=== PATIENT | female | born 1995 | race American Indian/Alaskan Native ===

== ENCOUNTER 2019-07-20 17:53 | Emergency (ER) | payer SELFPAY ==
[2019-07-20 17:59] VITALS: BP 131/46
--- NOTE | 2019-07-20 18:04 | Event Note ---
ED Screening Note Date of service: 07/20/19 Time: 18:01 ED Screening Note: This is a 23 y.o. F. that presents to the ER with upper back pain x 1 week. Patient states pain initially in lower back and progressed to between trapezium muscles. Denies recent injury, hematuria, urinary freq, urgency, and dysuria. LMP 07/06/19 This initial assessment/diagnostic orders/clinical plan/treatment(s) is/are subject to change based on patients health status, clinical progression and re- assessment by fellow clinical providers in the ED. Further treatment and workup at subsequent clinical providers discretion. Patient/guardian urged not to elope from the ED as their condition may be serious if not clinically assessed and managed. Initial orders include: XR thoracic spine
--- NOTE | 2019-07-20 18:42 | XRay Report ---
THORACIC SPINE 2 VIEWS INDICATION / CLINICAL INFORMATION: back pain. COMPARISON: None available. FINDINGS: VERTEBRAE: No acute fracture. No significant malalignment. DISC SPACES / FACET JOINTS:No significant abnormality. PARASPINAL SOFT TISSUES:No significant abnormality. ADDITIONAL FINDINGS: None. Signer Name: Ayesha Valdivia MD Signed: 07/20/2019 6:38 PM Workstation Name: [email or web address]
--- NOTE | 2019-07-20 19:02 | Emergency Department Report ---
HPI - General Chief Complaint: Back Pain/Injury Time Seen by Provider: 07/20/19 18:00 - HPI HPI: 23-year-old [place] female presents to the emergency department with complaint of some pain to the upper back, between the shoulder blades, that started this morning. She also feels that the pain radiates around to the middle of her chest. She denies any cough, shortness of breath, fever. She denies any recent trauma or injury or known inciting factor. She took one dose of ibuprofen earlier today without much relief. She has a past medical history of hypertension. No recent travel or sick contacts at home. ED Past Medical Hx - Past Medical History Previous Medical History?: Yes Hx Hypertension: Yes Additional medical history: prediabetes - Surgical History Past Surgical History?: Yes Hx Cholecystectomy: Yes Additional Surgical History: c-sect - Social History Smoking Status: Never Smoker Substance Use Type: None - Medications Home Medications: Home Medications Medication Instructions Recorded Confirmed Last Taken Type Amoxicillin [Trimox CAP] 500 mg PO Q8H #30 capsule 10/03/13 Unknown Rx predniSONE [Deltasone] 50 mg PO QDAY #4 tab 10/03/13 Unknown Rx Naproxen [Naprosyn] 500 mg PO BID #14 tablet 06/15/14 Unknown Rx Sulfamethoxazole/Trimethoprim 1 each PO BID #20 tablet 06/15/14 Unknown Rx [Bactrim Ds] methOCARBAMOL [Robaxin] 500 mg PO BID #14 tab 06/15/14 Unknown Rx Famotidine [Pepcid] 20 mg PO BID #40 tablet 12/16/15 Unknown Rx Promethazine [Phenergan TAB] 25 mg PO Q6HR PRN #20 tab 12/16/15 Unknown Rx Cyclobenzaprine HCl [Flexeril 5 MG 5 mg PO TID PRN #10 tab 07/20/19 Unknown Rx TAB] ED Review of Systems ROS: Stated complaint: BACK PAIN/CHEST PAIN Other details as noted in HPI Comment: All other systems reviewed and negative Constitutional: denies: chills, fever Respiratory: denies: cough, shortness of breath Cardiovascular: chest pain (chest wall pain). denies: palpitations, edema Musculoskeletal: back pain. denies: arthralgia Neurological: denies: weakness, numbness, paresthesias Physical Exam - Physical Exam Vital Signs: Vital Signs 07/20/19 17:55 Temperature 97.6 F Pulse Rate 100 H Respiratory 18 Rate Blood Pressure 131/46 O2 Sat by Pulse 97 Oximetry Physical Exam: GENERAL: The patient is well-developed well-nourished. HENT: Normocephalic. Atraumatic. EYES: Extraocular motions are intact. NECK: Supple. Trachea is midline. CHEST/LUNGS: Clear to auscultation. There is no respiratory distress noted. There is reproducible midsternal chest pain to palpation. No crepitus or deformity. HEART/CARDIOVASCULAR: Regular. There is no tachycardia. There is no murmur. ABDOMEN: Abdomen is soft, nontender. Patient has normal bowel sounds. There is no abdominal distention. SKIN: Skin is warm and dry. NEURO: The patient is awake, alert, and oriented. The patient is cooperative. The patient has no focal neurologic deficits. Normal speech. MUSCULOSKELETAL: There is no tenderness or deformity. There is no evidence of acute injury. BACK: There is some midline and bilateral paraspinal upper thoracic tenderness to palpation but no step-off or deformity. ED Course Vital Signs 07/20/19 17:55 Temperature 97.6 F Pulse Rate 100 H Respiratory 18 Rate Blood Pressure 131/46 O2 Sat by Pulse 97 Oximetry ED Medical Decision Making - Radiology Data Radiology results: image reviewed interpreted by me: Chest x-ray does not show any acute process. There are no pleural effusions, obvious pneumonia and there is no pneumothorax. X-ray of the thoracic spine does not show any fracture, dislocation or any acute process. - Medical Decision Making This patient presents with some atraumatic upper back pain, improving the shoulder blades, that radiates around towards the front of the chest. Both locations are reproducible to palpation without any crepitus or deformity. X- rays were done of the thoracic spine that did not show any fracture, subluxation, or any acute process. Chest x-ray does not show any pleural effusions, pneumothorax, focal consolidation, pneumonia, or any other acute process. Patient was given a Toradol shot and will be given a prescription for some Flexeril. She has been instructed to follow-up with primary care and return to the ER with any worsening of her symptoms or any acute distress. Regarding her back pain, she denies any problems with bowel or bladder, numbness or paresthesias or any neurological deficits. She appears low suspicion for any of the emergent back condition such as cauda equina, epidural abscess or cord compression syndrome. - Differential Diagnosis costochondritis, muscle spasm, subluxation rib Critical Care Time: No Critical care attestation.: If time is entered above; I have spent that time in minutes in the direct care of this critically ill patient, excluding procedure time. ED Disposition Clinical Impression: Upper back pain, Chest wall pain Disposition: TO HOME OR SELFCARE Is pt being admited?: No Condition: Stable Instructions: Costochondritis (ED), Back Pain (ED) Additional Instructions: Please follow-up with a primary care physician in the next few days. Return to the emergency Department with any worsening of your symptoms or any acute distress. You have been prescribed a medication that is sedating and therefore should not be taken prior to driving, working, and responsible for children and in no way should be mixed with alcohol of any quantity. Prescriptions: Cyclobenzaprine HCl [Flexeril 5 MG TAB] 5 mg PO TID PRN #10 tab PRN Reason: Muscle Spasm Referrals: DARIA PATEL MD [Staff Physician] - 2-3 Days [facility] [Outside] - 2-3 Days Time of Disposition: 19:40
[2019-07-20] MEDS ORDERED: TORADOL IM ONE (19:27)
--- NOTE | 2019-07-20 19:49 | XRay Report ---
CHEST 2 VIEWS INDICATION / CLINICAL INFORMATION: Chest and back pain.. COMPARISON: None available. FINDINGS: SUPPORT DEVICES: None. HEART / MEDIASTINUM: No significant abnormality. LUNGS / PLEURA: No significant pulmonary or pleural abnormality. No pneumothorax. ADDITIONAL FINDINGS: No significant additional findings. IMPRESSION: 1. No acute findings. Signer Name: Ayesha Valdivia MD Signed: 07/20/2019 7:45 PM Workstation Name: [id number]
== END 2019-07-20 20:00 | disposition home or self-care (01) ==
LOC: ED 17:53
DX: M54.6 Pain in thoracic spine (principal); R07.9 Chest pain, unspecified; I10 Essential (primary) hypertension; Z90.49 Acquired absence of other specified parts of digestive tract
CPT/HCPCS: 71046; 72070; 96372; 99283; J1885

== ENCOUNTER 2021-11-19 21:38 | Emergency (ER) | payer SELFPAY ==
[2021-11-19] MEDS ORDERED: ONDANSETRON 4 MG ODT TAB PO ONE (23:45)
[2021-11-20] MEDS: ALPRAZolam 0.5 MG TAB PO ONE ×2 (00:10→00:13)
--- NOTE | 2021-11-20 00:46 | Emergency Department Report ---
ED Anxiety HPI - General Chief Complaint: Anxiety Stated Complaint: PANIC ATTACK Time Seen by Provider: 11/19/21 23:45 Source: patient, family Mode of arrival: Ambulatory - History of Present Illness Initial Comments: 26-year-old female with no past medical history presents to the emergency department for evaluation of anxiety attack. She states that about 1 hour prior to arrival she started to feel like she could not catch her breath. She states that she has a history of anxiety for which she was taking medication for but had to stop after her insurance ended. She denies SI, HI, chest pain but states that she still feels like she is having a hard time catching her breath. She she states that she had one episode of vomiting while in the emergency department waiting room but denies dizziness fever. Her last menstrual period was November 05, 2021. MD Complaint: anxiety, shortness of breath -: Sudden Symptoms: dyspnea Place: home Previous History of Same: Yes Severity: moderate Quality: constant Provoking factors: none known Associated symptoms: shortness of breath, nausea/vomiting. denies: chest pain, palpitations, diaphoresis, confusion, cough, fever/chills, headaches, weakness - Related Data Home Medications: Previous Rx's Medication Instructions Recorded Last Taken Type Amoxicillin [Trimox CAP] 500 mg PO Q8H #30 capsule 10/03/13 Unknown Rx predniSONE [Deltasone] 50 mg PO QDAY #4 tab 10/03/13 Unknown Rx Naproxen [Naprosyn] 500 mg PO BID #14 tablet 06/15/14 Unknown Rx Sulfamethoxazole/Trimethoprim 1 each PO BID #20 tablet 06/15/14 Unknown Rx [Bactrim Ds] methOCARBAMOL [Robaxin] 500 mg PO BID #14 tab 06/15/14 Unknown Rx Famotidine [Pepcid] 20 mg PO BID #40 tablet 12/16/15 Unknown Rx Promethazine [Phenergan TAB] 25 mg PO Q6HR PRN #20 tab 12/16/15 Unknown Rx Cyclobenzaprine HCl [Flexeril 5 MG 5 mg PO TID PRN #10 tab 07/20/19 Unknown Rx TAB] hydrOXYzine PAMOATE [Vistaril] 25 mg PO Q6HR PRN #21 capsule 11/20/21 Unknown Rx Allergies/Adverse Reactions: Allergies Allergy/AdvReac Type Severity Reaction Status Date / Time No Known Allergies Allergy Verified 12/15/15 17:50 ED Review of Systems ROS: Stated complaint: PANIC ATTACK Other details as noted in HPI Comment: All other systems reviewed and negative Constitutional: denies: chills, diaphoresis, fever, weakness Eyes: denies: eye pain ENT: denies: ear pain, throat pain, congestion Respiratory: shortness of breath. denies: cough, SOB with exertion, SOB at rest, wheezing Cardiovascular: denies: chest pain, palpitations, dyspnea on exertion Endocrine: no symptoms reported Gastrointestinal: nausea, vomiting. denies: abdominal pain, diarrhea, hematemesis, melena, hematochezia Genitourinary: denies: urgency, dysuria Musculoskeletal: denies: back pain Skin: denies: rash, lesions Neurological: weakness. denies: headache, numbness, paresthesias, abnormal gait Psychiatric: anxiety. denies: auditory hallucinations, visual hallucinations, homicidal thoughts, suicidal thoughts ED Past Medical Hx - Past Medical History Hx Hypertension: Yes Additional medical history: prediabetes - Surgical History Hx Cholecystectomy: Yes Additional Surgical History: c-sect - Social History Smoking Status: Never Smoker - Medications Home Medications: Home Medications Medication Instructions Recorded Confirmed Last Taken Type Amoxicillin [Trimox CAP] 500 mg PO Q8H #30 capsule 10/03/13 Unknown Rx predniSONE [Deltasone] 50 mg PO QDAY #4 tab 10/03/13 Unknown Rx Naproxen [Naprosyn] 500 mg PO BID #14 tablet 06/15/14 Unknown Rx Sulfamethoxazole/Trimethoprim 1 each PO BID #20 tablet 06/15/14 Unknown Rx [Bactrim Ds] methOCARBAMOL [Robaxin] 500 mg PO BID #14 tab 06/15/14 Unknown Rx Famotidine [Pepcid] 20 mg PO BID #40 tablet 12/16/15 Unknown Rx Promethazine [Phenergan TAB] 25 mg PO Q6HR PRN #20 tab 12/16/15 Unknown Rx Cyclobenzaprine HCl [Flexeril 5 MG 5 mg PO TID PRN #10 tab 07/20/19 Unknown Rx TAB] hydrOXYzine PAMOATE [Vistaril] 25 mg PO Q6HR PRN #21 capsule 11/20/21 Unknown Rx ED Physical Exam - General Limitations: No Limitations General appearance: alert, in no apparent distress - Head Head exam: Present: atraumatic, normocephalic - Eye Eye exam: Present: normal appearance. Absent: conjunctival injection - Neck Neck exam: Present: normal inspection - Respiratory Respiratory exam: Present: normal lung sounds bilaterally. Absent: respiratory distress, wheezes, rales, chest wall tenderness, accessory muscle use - Cardiovascular Cardiovascular Exam: Present: normal heart sounds - GI/Abdominal GI/Abdominal exam: Present: soft, normal bowel sounds. Absent: distended, tenderness, guarding - Extremities Exam Extremities exam: Present: normal inspection - Back Exam Back exam: Present: normal inspection. Absent: tenderness, CVA tenderness (R), CVA tenderness (L) - Neurological Exam Neurological exam: Present: alert, oriented X3 - Psychiatric Psychiatric exam: Present: normal affect, normal mood. Absent: anxious, homicidal ideation, suicidal ideation - Skin Skin exam: Present: warm, dry, intact ED Course - Reevaluation(s) Reevaluation #1: 11/20/21 00:43 Patient refused Xanax, but states that she feels better no acute distress noted ED Medical Decision Making - Radiology Data 26-year-old female with no past medical history presents to the emergency department for evaluation of anxiety attack. She states that about 1 hour prior to arrival she started to feel like she could not catch her breath. She states that she has a history of anxiety for which she was taking medication for but had to stop after her insurance ended. She denies SI, HI, chest pain but states that she still feels like she is having a hard time catching her breath. She she states that she had one episode of vomiting while in the emergency department waiting room but denies dizziness fever. Her last menstrual period was November 05, 2021. Patient refused Xanax ordered in the emergency department, but states that she feels better. She denies any anxiety or shortness of breath at this time. She will be discharged home with a prescription for Vistaril to use as needed for anxiety. She was advised to follow-up with her primary care provider for further evaluation and worsening symptoms. She verbalized understanding of and agreement with plan of care. Critical care attestation.: If time is entered above; I have spent that time in minutes in the direct care of this critically ill patient, excluding procedure time. ED Disposition Clinical Impression: Anxiety Disposition: 01 HOME / SELF CARE / HOMELESS Is pt being admited?: No Does the pt Need Aspirin: No Condition: Stable Instructions: Managing Anxiety, Adult Additional Instructions: Take medications as prescribed. Follow-up with primary care provider if no improvement or recurrence or worsening of symptoms. Prescriptions: hydrOXYzine PAMOATE [Vistaril] 25 mg PO Q6HR PRN #21 capsule PRN Reason: Anxiety [facility] Time of Disposition: 00:45
== END 2021-11-20 01:18 | disposition home or self-care (01) ==
LOC: ED 21:38
DX: F41.9 Anxiety disorder, unspecified (principal); I10 Essential (primary) hypertension; Z98.890 Other specified postprocedural states; Z79.899 Other long term (current) drug therapy
CPT/HCPCS: 99282; J3490; Q0162